=== PATIENT | male | born 1960 ===

== ENCOUNTER 2021-04-26 18:33 | Emergency (ER) | payer SELFPAY ==
[2021-04-26 20:02] LABS: RED BLOOD COUNT 4.74 M/UL (4.20-5.50); WHITE BLOOD COUNT 8.6 K/UL (4.5-11.0)
[2021-04-26 20:24] LABS: BUN/CREATININE RATIO 13 (0-10)
== END 2021-04-26 20:53 | disposition home or self-care (01) ==
LOC: ER1 18:33
PROVIDERS: Physician Assistant
DX: Z02.79 Encounter for issue of other medical certificate (principal)
CPT/HCPCS: 71045; 80053; 85025; 99284